=== PATIENT | male | born 1970 | race Caucasian/White ===

== ENCOUNTER 2018-05-10 08:58 | Emergency (ER) | payer SELFPAY ==
[2018-05-10 09:35] VITALS: BP 142/83
[2018-05-10] MEDS ORDERED: Fluorescein Sodium TOPICAL* 1 MG TEST STRIP OPHTHALMIC ONE (10:15)
[2018-05-10] MEDS ORDERED: Fluorescein Sodium TOPICAL* 1 MG TEST STRIP ONE (10:17)
--- NOTE | 2018-05-10 10:28 | UC ---
Eye Complaint HPI - HPI Summary HPI Summary: HERPES TO R UPPER LIP THIS WEEK BUT RESOLVING. DEVELOPED A SPOT BELOW HIS R EYE YESTERDAY AND R EYE IRRITATED. R EYE STILL RED AND IRRITATED. WEARS CONTACTS. NO VISUAL LOSS, EYE PAIN OR PHOTOPHOBIA. NO DISCHARGE. - History of Current Complaint Chief Complaint: UCEye Stated Complaint: RIGHT EYE COMPLAINT Time Seen by Provider: 05/10/18 10:15 Hx Obtained From: Patient Onset/Duration: Gradual Onset Timing: Constant Pain Intensity: 0 Aggravating Factor(s): Nothing Alleviating Factor(s): Nothing - Risk Factors Globe Rupture Risk Factors: Negative Acute Glaucoma Risk Factors: Negative - Allergies/Home Medications Allergies/Adverse Reactions: Allergies Allergy/AdvReac Type Severity Reaction Status Date / Time No Known Allergies Allergy Verified 02/21/13 17:29 PMH/Surg Hx/FS Hx/Imm Hx Previously Healthy: Yes - Surgical History Surgical History: Yes Surgery Procedure, Year, and Place: cardiac cath 13 years ago - Family History Known Family History: Positive: Non-Contributory - Social History Occupation: Employed Full-time Alcohol Use: Occasionally Substance Use Type: None Smoking Status (MU): Never Smoked Tobacco - Immunization History Vaccination Up to Date: Yes Review of Systems All Other Systems Reviewed And Are Negative: Yes Constitutional: Negative: Fever Skin: Positive: Rash - R UPPER LIP AND BELOW R EYE Eyes: Positive: Eye Redness - R ENT: Negative: Sore Throat, Nasal Discharge, Sinus Congestion Respiratory: Positive: Negative Cardiovascular: Positive: Negative Gastrointestinal: Positive: Negative Genitourinary: Positive: Negative Motor: Positive: Negative Neurovascular: Positive: Negative Musculoskeletal: Positive: Negative Neurological: Positive: Negative Psychological: Positive: Negative Physical Exam Triage Information Reviewed: Yes Appearance: Well-Appearing Vital Signs: Initial Vital Signs Temp 97.8 F 05/10/18 09:32 Pulse 98 05/10/18 09:32 Resp 18 05/10/18 09:32 BP 142/83 05/10/18 09:32 Pulse Ox 97 05/10/18 09:32 Vital Signs Reviewed: Yes Eyes: Positive: Other: - RED RASH BELOW R EYE. NO PERIORBITAL EDEMA. NO AURICULAR ADENOPATHY. CONJUNTIVA INJECTED ON R. PERRL, EOMI. AC'S CLEAR. NO FB' S OR UPTAKE OF STAIN. L EYE IS CLEAR. ENT: Positive: Pharynx normal, TMs normal. Negative: Nasal congestion, Nasal drainage Neck: Positive: Supple, Nontender, No Lymphadenopathy Respiratory: Positive: Lungs clear Cardiovascular: Positive: RRR, No Murmur Abdomen Description: Positive: Nontender, No Organomegaly, Soft Bowel Sounds: Positive: Present Musculoskeletal: Positive: ROM Intact Neurological: Positive: Alert Psychological: Positive: Age Appropriate Behavior Skin Exam: Normal Skin: Positive: Rashes - R UPPER LIP HAS RED SPOT AND SPOT BELOW R EYE PER EYE EXAM. Eye Complaint Course/Dx - Course Course Of Treatment: PT REMOVED R CONTACT FOR EXAM. HE WAS ADVISED TO DISPOSE OF IT. [facility] CALLED, THEY ARE UNABLE TO SEE PT. WITH PT OK , DR FISH'S OFFICE CALLED AND THEY WILL SEE PT AT 11:15 AM OR SOONER. PT WILL GO DIRECTLY THERE. I THINK BP VISIT RELATED. - Differential Dx/Diagnosis Differential Diagnosis/HQI/PQRI: Conjunctivitis, Keratitis - HERPES Provider Diagnosis: Conjunctivitis Discharge - Sign-Out/Discharge Documenting (check all that apply): Patient Departure All imaging exams completed and their final reports reviewed: No - Discharge Plan Condition: Stable Disposition: HOME Referrals: Comfort Fish MD [Medical Doctor] - Additional Instructions: LEAVE HERE AND GO DIRECTLY TO THE OFFICE OF DR FISH. YOU WILL BE SEEN BY JOSE MIGUEL MORENO AT 11:15 BUT THEY WILL TRY TO WORK YOU IN NOW. - Billing Disposition and Condition Condition: STABLE Disposition: Home
== END 2018-05-10 10:43 | disposition home or self-care (01) ==
LOC: UCCORT 08:58
DX: H10.9 Unspecified conjunctivitis (principal)
CPT/HCPCS: 99202; A9270-GY; G0463

== ENCOUNTER 2019-07-01 16:26 | Emergency (ER) | payer OTHER ==
[2019-07-01 17:06] VITALS: BP 146/90
--- NOTE | 2019-07-01 17:14 | UC ---
Throat Pain/Nasal Octavio HPI - HPI Summary HPI Summary: 49 yo with one week history of ear pain and sinus congestion. Onset of symptoms one week ago, with worsening when he flew to [place] last week for work. Has not improved with rest and OTC meds such as Sudafed. No cough or shortness of breath. - History of Current Complaint Chief Complaint: UCGeneralIllness Stated Complaint: SINUS COMPLAINT Time Seen by Provider: 07/01/19 17:12 Hx Obtained From: Patient Onset/Duration: Gradual Onset, Lasting Days - 7 Severity: Moderate Pain Intensity: 0 Cough: None Associated Signs & Symptoms: Positive: Sinus Discomfort, Nasal Discharge - Epiglottits Risk Factors Epiglottis Risk Factors: Negative - Allergies/Home Medications Allergies/Adverse Reactions: Allergies Allergy/AdvReac Type Severity Reaction Status Date / Time No Known Allergies Allergy Verified 07/01/19 17:06 Home Medications: Home Medications Lisinopril [Zestril] 10 mg PO DAILY 07/01/19 [History Confirmed 07/01/19] PMH/Surg Hx/FS Hx/Imm Hx Cardiovascular History: Hypertension - Surgical History Surgical History: Yes Surgery Procedure, Year, and Place: cardiac cath 13 years ago - Family History Known Family History: Positive: Diabetes - mother, diet controlled - Social History Occupation: Employed Full-time Lives: Alone Alcohol Use: Daily Alcohol Amount: almost daily Substance Use Type: None Smoking Status (MU): Never Smoked Tobacco - Immunization History Vaccination Up to Date: Yes Review of Systems All Other Systems Reviewed And Are Negative: Yes Constitutional: Positive: Fatigue Skin: Positive: Negative Eyes: Positive: Negative ENT: Positive: Sore Throat, Ear Ache, Nasal Discharge, Sinus Congestion Respiratory: Positive: Negative Cardiovascular: Positive: Negative Gastrointestinal: Positive: Negative Genitourinary: Positive: Negative Motor: Positive: Negative Neurovascular: Positive: Negative Musculoskeletal: Positive: Negative Neurological: Positive: Negative Psychological: Positive: Negative Is Patient Immunocompromised?: No Physical Exam Triage Information Reviewed: Yes Appearance: Ill-Appearing - looks mildly unwell Vital Signs: Initial Vital Signs Temp 97.4 F 07/01/19 17:00 Pulse 91 07/01/19 17:00 Resp 15 07/01/19 17:00 BP 146/90 07/01/19 17:00 Pulse Ox 100 07/01/19 17:00 Eyes: Positive: Conjunctiva Inflamed - mild injection bilaterally ENT: Positive: Pharyngeal erythema, TM bulging, TM dull, TM red - bilateral erythema and bulging Dental Exam: Normal Neck: Positive: Supple, Nontender, No Lymphadenopathy Respiratory: Positive: Lungs clear, Normal breath sounds, No respiratory distress Cardiovascular: Positive: RRR, No Murmur Musculoskeletal Exam: Normal Neurological Exam: Normal Psychological Exam: Normal Skin Exam: Normal Throat Pain/Nasal Course/Dx - Course Course Of Treatment: Begin amoxicillin for treatment of sinus and ear infection. Discussed relief of serous otitis. - Differential Dx/Diagnosis Differential Diagnosis/HQI/PQRI: Otitis Media, Pharyngitis, Sinusitis, Tonsillitis, URI Provider Diagnosis: Sinusitis, Middle ear infection affecting both ears Discharge ED - Sign-Out/Discharge Documenting (check all that apply): Patient Departure All imaging exams completed and their final reports reviewed: No Studies - Discharge Plan Condition: Stable Disposition: HOME Prescriptions: Amoxicillin PO (*) [Amoxicillin 875 MG (*)] 875 mg PO BID #20 tab Patient Education Materials: Sinusitis (ED) Referrals: Yani Cortes MD [Primary Care Provider] - Additional Instructions: Please take the full course of antibiotic treatment. To help to relieve ear pressure you might try: ~over the counter fluticasone (Flonase) 2 sprays to both nostrils once daily. ~mucinex 600mg twice daily can also help to promote drainage. Use acetaminphen as needed for control of pain. Follow up if you have fever or increasing cough - Billing Disposition and Condition Condition: STABLE Disposition: Home
== END 2019-07-01 17:34 | disposition home or self-care (01) ==
LOC: UCCORT 16:26
DX: J32.9 Chronic sinusitis, unspecified (principal); H66.93 Otitis media, unspecified, bilateral; I10 Essential (primary) hypertension
CPT/HCPCS: 99212; G0463